=== PATIENT | female | born 1990 | race Caucasian/White ===

== ENCOUNTER 2023-07-19 15:55 | Emergency (ER) | payer MEDICAID ==
[~2023-07-19] VITALS: Ht 162.6 cm; Wt 105.0 kg
[2023-07-19 16:04] VITALS: BP 138/92; PULSE 140; TEMP 101.3; O2SAT 96
[2023-07-19] MEDS ORDERED: AMOX-117 PO (18:08)
[2023-07-19] MEDS ORDERED: LIDO20SO16 PO (18:08)
[2023-07-19] MEDS: ketorolac trometh. 30mg/ml inj. IM ONE (18:10)
[2023-07-19 19:02] VITALS: RESP 16
[2023-07-19] MEDS: acetaminophen 325mg tablet PO ONE (19:02)
[2023-07-19] MEDS: dexamethasone sod phosphate 10mg/ml inj PO STA (19:02)
[2023-07-19] MEDS: ketorolac tromethamine 15mg/ml inj. IM ONE (19:02)
== END 2023-07-19 19:27 | disposition home or self-care (01) ==
LOC: ER 15:56
DX: J03.90 Acute tonsillitis, unspecified (principal); R50.9 Fever, unspecified
CPT/HCPCS: 71045; 96372; 99283; J1100; J1885